=== PATIENT | female | born 1965 | race Native Hawaiian/Other Pacific Islander ===

== ENCOUNTER 2020-11-30 11:10 | Outpatient (CLI) | payer OTHER ==
[~2020-11-30 11:10] MED LIST: ESTR0.6211 PO; ESTR1TAB13 PO; IRON SUPPLEMEN325 MG PO; PHENTERMINE37.5 MG PO; PRILOSEC OTC20 MG PO; TERBINAFINE250 MG PO
== END 2020-11-30 22:12 | disposition home or self-care (01) ==
LOC: INF 11:10
PROVIDERS: ATTEND Internal Medicine
DX: Z23 Encounter for immunization (principal)
CPT/HCPCS: 96372

== ENCOUNTER 2020-12-22 11:29 | Outpatient (CLI) | payer OTHER | END 2020-12-22 22:20 | disposition home or self-care (01) | LOC: INF 11:29 | PROVIDERS: ATTEND Internal Medicine | DX: Z23 Encounter for immunization (principal) | CPT/HCPCS: 96372 ==